=== PATIENT | male | born 2000 | race Two or more races ===

== ENCOUNTER → 2022-09-09 | Emergency (ER) | payer OTHER ==
[~2022-09-09] VITALS: Ht 182.9 cm; Wt 68.0 kg
[~2022-09-09] MED LIST: IBUPROFEN 600 MG TABLET ONE; IBUPROFEN 600 MG TABLET PO ONE; OXYC-128 PO; oxyCODONE/APAP (5/325 MG) 1 UDTAB TABLET ONE; oxyCODONE/APAP (5/325 MG) 1 UDTAB TABLET PO ONE
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
--- NOTE | 2022-09-09 14:50 | NUR ---
XRAY AT BEDSIDE
[2022-09-09 16:22] VITALS: BP 120/70
--- NOTE | 2022-09-09 16:22 | NUR ---
MD WITH ORDER TO D/C HOME. LEFT IN STABLE CONDITION.
== END | disposition home or self-care (01) ==
LOC: ER 13:06
DX: S42.212A Unspecified displaced fracture of surgical neck of left humerus, initial encounter for closed fracture (principal); F32.A Depression, unspecified; Z91.040 Latex allergy status; Z60.2 Problems related to living alone; V49.50XA Passenger injured in collision with unspecified motor vehicles in traffic accident, initial encounter; Y93.89 Activity, other specified; Y92.89 Other specified places as the place of occurrence of the external cause; Y99.8 Other external cause status
CPT/HCPCS: 73030-TC; 73110; 73130-TC